=== PATIENT | female | born 1960 | race Caucasian/White ===

== ENCOUNTER 2021-11-30 17:17 | Observation (INO) ==
[2021-11-30 18:22] LABS: ABS Basophils 0.1 10^3/ul (0-0.2); ABS Eosinophils 0.1 10^3/ul (0-0.6); ABS Lymphocytes 1.4 10^3/ul (1.0-4.8); ABS Monocytes 0.4 10^3/ul (0-0.8); ABS Neutrophils 3.2 10^3/ul (1.5-7.7); Eosinophil % 1.1 %; Hematocrit 44 % (35-47); Hemoglobin 14.8 g/dL (12.0-16.0); Lymphocyte % 27.1 %; Mean Corpuscular HGB Conc 34 g/dL (31-36); Mean Corpuscular Hemoglobin 32 pg (27-31); Mean Corpuscular Volume 94 fL (80-97); Mean Platelet Volume 8.5 fL (7.4-10.4); Nucleated Red Blood Cells % 0.2; Platelet Count 200 10^3/uL (150-450); Red Cell Distribution Width 15 % (10-15); White Blood Count 5.1 10^3/uL (3.5-10.8)
[2021-11-30 18:43] LABS: INR 1.05 (0.86-1.15)
[2021-11-30 18:44] LABS: High Sens Troponin Baseline < 3 pg/mL (<15)
[2021-11-30 18:54] LABS: ALT 16 U/L (7-52); AST 14 U/L (13-39); Albumin 4.6 g/dL (3.2-5.2); Albumin/Globulin Ratio 1.6 (1-3); Alkaline Phosphatase 71 U/L (35-149); Anion Gap 7 mmol/L (2-11); Blood Urea Nitrogen 12 mg/dL (6-24); CO2 Carbon Dioxide 28 mmol/L (22-32); Chloride 106 mmol/L (101-111); Globulin 2.9 g/dL (2-4); Glucose 88 mg/dL (70-100); Potassium 3.9 mmol/L (3.5-5.0); Sodium 141 mmol/L (135-145); Total Protein 7.5 g/dL (6.4-8.9); eGFR CKD-EPI 99.9 (>60)
[2021-11-30] MEDS ORDERED: Iohexol 350 (CONTRAST) 500 ML MDV IV ONE (19:29)
[2021-11-30 22:30] LABS: Alcohol, S < 13 mg/dL (<13)
[2021-11-30] MEDS ORDERED: Albuterol HFA INHALER 8 gm MDI INH PRN (22:56)
[2021-12-01 03:34] LABS: Cholesterol 257 mg/dL; HDL Cholesterol 60.8 mg/dL; LDL Cholesterol 175 mg/dL; Triglycerides 104 mg/dL
[2021-12-01 09:37] LABS: TSH Ultra Thyroid Stim Horm 3.15 mcIU/mL (0.34-5.60)
[2021-12-01 09:48] LABS: Vitamin B12 > 1450 pg/mL (180-914)
[2021-12-01] MEDS ORDERED: Enoxaparin 30 MG/0.3 ML SYR SUBCUT SCH (10:00)
[2021-12-01 17:17] VITALS: BP 137/92
== END 2021-12-01 19:05 | disposition home or self-care (01) ==
LOC: ED 17:17 → EDHOLD 17:17 → SUATTDRO 22:52 → EDHOLD 12-01 03:50 → MEDTELE 12-01 06:18
PROVIDERS: ADMIT Internal Medicine; ATTEND Internal Medicine